=== PATIENT | female | born 1970 | race Two or more races ===

== ENCOUNTER 2017-08-16 15:57 | Emergency (ER) | payer MEDICAID ==
[~2017-08-16] VITALS: Ht 165.1 cm; Wt 92.1 kg
[2017-08-16 16:01] VITALS: Ht 165.1 cm; Wt 92.1 kg
[2017-08-16 16:55] LABS: BASOPHIL % 0.3 % (0-2); PLATELET COUNT 223 x10^3mcL (130-400)
[2017-08-16 16:56] LABS: RED CELL DISTRIBUTION WIDTH 14.8 % (11.5-14.5)
[2017-08-16 18:13] VITALS: BP 102/62
[2017-08-16 18:13] LABS: CALCIUM 8.1 mg/dL (8.5-10.1); CARBON DIOXIDE 25.7 mmol/L (21-32); CHLORIDE SERUM 104 mmol/L (98-107); CREATININE SERUM 0.6 mg/dL (0.6-1.0); GFR1 > 60 mL/min; GLUCOSE SERUM 77 mg/dL (74-106); POTASSIUM SERUM 3.9 mmol/L (3.5-5.1); SODIUM SERUM 139 mmol/L (136-145)
== END 2017-08-16 18:54 | disposition home or self-care (01) ==
LOC: ED 15:57
PROVIDERS: Emergency Medicine
DX: R42 Dizziness and giddiness (principal); R06.02 Shortness of breath; Z88.0 Allergy status to penicillin; Z88.8 Allergy status to other drugs, medicaments and biological substances
CPT/HCPCS: 83880; J7030; Q0092

== ENCOUNTER 2017-08-19 21:02 | Emergency (ER) | payer MEDICAID ==
[~2017-08-19] VITALS: Ht 165.1 cm; Wt 93.1 kg
[2017-08-19 21:10] VITALS: Ht 165.1 cm; Wt 93.1 kg
[2017-08-19 22:28] LABS: PLATELET COUNT 202 x10^3mcL (130-400)
[2017-08-19 22:43] LABS: CALCIUM 8.7 mg/dL (8.5-10.1); CARBON DIOXIDE 24.7 mmol/L (21-32); CHLORIDE SERUM 105 mmol/L (98-107); CREATININE SERUM 0.8 mg/dL (0.6-1.0); GFR1 > 60 mL/min; GLUCOSE SERUM 98 mg/dL (74-106); SODIUM SERUM 141 mmol/L (136-145)
[2017-08-19 22:48] LABS: ALBUMIN 3.5 g/dL (3.4-5.0); ALKALINE PHOSPHATASE 75 U/L (46-116); ALT/SGPT 27 U/L (14-59); AST/SGOT 19 U/L (15-37); BILIRUBIN TOTAL 0.33 mg/dL (0.20-1.00); CHOLESTEROL 151 mg/dL (<200); TOTAL PROTEIN, SERUM 6.8 g/dL (6.4-8.2)
[2017-08-19 22:53] LABS: T3 TOTAL 1.06 ng/mL
[2017-08-20 00:42] LABS: FREE T4 1.01 ng/dL (0.76-1.46); FREE THYROXINE INDEX 2.5 ug/dL (1.4-4.5)
[2017-08-20 02:15] VITALS: BP 125/68
== END 2017-08-20 02:15 | disposition home or self-care (01) ==
LOC: ED 21:02
PROVIDERS: Emergency Medicine
DX: R00.2 Palpitations (principal); R42 Dizziness and giddiness; R06.02 Shortness of breath; Z88.1 Allergy status to other antibiotic agents; Z90.710 Acquired absence of both cervix and uterus
CPT/HCPCS: 36415; 84439; 85378